=== PATIENT | female | born 1945 | race Caucasian/White ===

== ENCOUNTER 2017-06-09 15:22 | Emergency (ER) | payer OTHER ==
[~2017-06-09] VITALS: Ht 160 cm; Wt 81.5 kg
[2017-06-09] MEDS ORDERED: NORCO 5/3251 TABLET PO (17:30)
[2017-06-09 17:47] VITALS: BP 178/83
== END 2017-06-09 17:48 | disposition home or self-care (01) ==
LOC: EME 15:22
DX: S42.212A Unspecified displaced fracture of surgical neck of left humerus, initial encounter for closed fracture (principal); W10.9XXA Fall (on) (from) unspecified stairs and steps, initial encounter
CPT/HCPCS: 73030; 73060; 99281; 99284